=== PATIENT | male | born 1990 ===

== ENCOUNTER 2017-06-12 22:49 | Emergency (ER) | payer SELFPAY ==
[~2017-06-12] VITALS: Ht 177.8 cm; Wt 72.5 kg
[2017-06-12 22:51] VITALS: Ht 177.8 cm; Wt 72.5 kg
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
== END 2017-06-13 01:15 | disposition left against medical advice (07) ==
LOC: FTE 22:49
DX: S06.0X1A Concussion with loss of consciousness of 30 minutes or less, initial encounter (principal); F17.210 Nicotine dependence, cigarettes, uncomplicated; Y04.2XXA Assault by strike against or bumped into by another person, initial encounter
CPT/HCPCS: 99282